=== PATIENT | female | born 1980 | race Caucasian/White ===

== ENCOUNTER 2020-04-08 10:16 | Emergency (ER) | payer BC ==
[2020-04-08] MEDS ORDERED: Amoxicillin/Clavulanate K 875-125 MG Tab PO ONE (10:17)
[2020-04-08] MEDS ORDERED: Ondansetron 4 MG Tab.DIS PO ONE ×2 (10:17→10:48)
[2020-04-08] MEDS ORDERED: Take Home: Ondansetron 4 MG Tab.DIS, 2 Tab Pack PO ONE (10:48)
[2020-04-08] MEDS ORDERED: Take Home: Amoxicillin/Clavulanate K 875-125 MG Tab, 2 Tab Pack PO ONE (10:48)
--- NOTE | 2020-04-08 10:56 | EDM.PDOC ---
ED HPI GENERAL MEDICAL PROBLEM - General Chief Complaint: General Stated Complaint: ?covid Time Seen by Provider: 04/08/20 10:47 Source of Information: Reports: Patient History Limitations: Reports: No Limitations - History of Present Illness INITIAL COMMENTS - FREE TEXT/NARRATIVE: This patient is a 40 year old female that presents to the ER. Patient reports that for about 1 week having facial pain and pressure. She reports also a headache, nausea, and vomiting a couple of times, diarrhea. Patient reports that she has a history of sinus infections. She reports this feels like a sinus infection, but came on a little faster than her past infections. Onset Date: 04/01/20 Duration: Week(s): (1) Location: Reports: Head, Face Quality: Reports: Pressure Severity: Moderate Improves with: Reports: None Worsens with: Reports: None Associated Symptoms: Reports: Headaches, Nausea/Vomiting. Denies: Confusion, Chest Pain, Cough, cough w sputum, Diaphoresis, Fever/Chills, Loss of Appetite, Malaise, Rash, Seizure, Shortness of Breath, Syncope, Weakness headache Pain Score (Numeric/FACES): 8 - Related Data Allergies Allergy/AdvReac Type Severity Reaction Status Date / Time Sulfa (Sulfonamide Allergy Anaphylactic Verified 04/08/20 10:33 Antibiotics) Shock Home Meds: Home Meds Amoxicillin/Clavulanate K [Augmentin 875-125 MG] 1 tab PO BID #18 tablet 04/08/20 [Rx] FLUoxetine [PROzac] 40 mg PO DAILY 04/08/20 [History] Ondansetron [Zofran ODT] 4 mg PO Q6H PRN #12 tab.dis 04/08/20 [Rx] methylPREDNISolone [Medrol Dose Pack] 4 mg PO ASDIRECTED #1 dospk 04/08/20 [Rx] Past Medical History - Past Surgical History Other HEENT Surgeries/Procedures: pt reports hx sinus infections Social & Family History - Family History Family Medical History: Noncontributory - Tobacco Use Tobacco Use Status *Q: Never Tobacco User Second Hand Smoke Exposure: No - Caffeine Use Caffeine Use: Reports: None - Recreational Drug Use Recreational Drug Use: No ED ROS GENERAL - Review of Systems Review Of Systems: See Below Constitutional: Reports: No Symptoms. Denies: Fever HEENT: Reports: Sinus Problem. Denies: Dental Pain, Ear Discharge, Ear Pain, Eye Discharge, Eye Pain, Hearing Loss, Nosebleed, Nose Pain, Rhinitis, Throat Pain, Throat Swelling, Vertigo, Vision Change Respiratory: Reports: No Symptoms. Denies: Shortness of Breath, Cough, Sputum Cardiovascular: Reports: No Symptoms. Denies: Chest Pain, Dyspnea on Exertion, Edema, Lightheadedness, Palpitations, Syncope Endocrine: Reports: No Symptoms GI/Abdominal: Reports: Diarrhea, Nausea, Vomiting. Denies: Abdominal Pain : Reports: No Symptoms Musculoskeletal: Reports: No Symptoms Skin: Reports: No Symptoms Neurological: Reports: Headache. Denies: Confusion, Dizziness, Numbness, Seizure, Syncope, Tingling, Trouble Speaking, Weakness, Change in Speech, Gait Disturbance Psychiatric: Reports: No Symptoms Hematologic/Lymphatic: Reports: No Symptoms Immunologic: Reports: No Symptoms ED EXAM, GENERAL - Physical Exam Exam: See Below Exam Limited By: No Limitations General Appearance: Alert, WD/WN, No Apparent Distress Eye Exam: Bilateral Eye: Normal Inspection, PERRL Ears: Normal External Exam, Normal Canal, Hearing Grossly Normal, Normal TMs Ear Exam: Bilateral Ear: Auricle Normal, Canal Normal, TM normal Nose: Normal Inspection, Normal Mucosa, No Blood Throat/Mouth: Normal Inspection, Normal Lips, Normal Teeth, Normal Gums, Normal Oropharynx, Normal Voice, No Airway Compromise Head: Atraumatic, Normocephalic, Sinus Tenderness (frontal and maxillary sinuses bilateral), Other (failed light illumination frontal and maxillary bilateral). No: Facial Swelling Neck: Normal Inspection, Supple, Non-Tender, Full Range of Motion Respiratory/Chest: No Respiratory Distress, Lungs Clear, Normal Breath Sounds, No Accessory Muscle Use, Chest Non-Tender Cardiovascular: Normal Peripheral Pulses, Regular Rate, Rhythm, No Edema, No Gallop, No JVD, No Murmur, No Rub Peripheral Pulses: 2+: Radial (L), Radial (R), Posterior Tibial (L), Posterior Tibial (R) GI/Abdominal: Normal Bowel Sounds, Soft, Non-Tender, No Distention. No: Guarding, Rigid, Rebound, Tender Back Exam: Normal Inspection, Full Range of Motion Extremities: Normal Inspection, Normal Range of Motion, Non-Tender, No Pedal Edema, Normal Capillary Refill Neurological: Alert, Oriented, Normal Cognition, Normal Gait, No Motor/Sensory Deficits Psychiatric: Normal Affect, Normal Mood Skin Exam: Warm, Dry, Intact, Normal Color, No Rash Lymphatic: No Adenopathy Course - Vital Signs Last Recorded V/S: Last Vital Signs Temp 98.9 F 04/08/20 10:17 Pulse 91 04/08/20 10:17 Resp 18 04/08/20 10:17 BP Pulse Ox 100 04/08/20 10:17 - Orders/Labs/Meds Orders: Active Orders 24 hr Category Date Time Status CMP [COMPREHENSIVE METABOLIC PN,CMP] [CHEM] Stat Lab 04/08/20 10:55 Received Labs: Laboratory Tests 04/08/20 04/08/20 Range/Units 09:50 10:55 WBC 8.5 (5.0-10.0) 10^3/uL RBC 4.38 (4.00-5.50) 10^6/uL Hgb 13.1 (12.0-16.0) g/dL Hct 39.0 (37.0-47.0) % MCV 89.0 (82.0-94.0) fL MCH 29.9 (27.0-32.0) pg MCHC 33.6 (33.0-38.0) g/dL RDW Coeff of Kierra 13.3 (11.0-15.0) % Plt Count 356 (150-400) 10^3/uL Neut % (Auto) 72.1 (35-85) % Lymph % (Auto) 18.5 (10-55) % Beckham % (Auto) 7.2 (0-16) % Eos % (Auto) 2.0 (0-5) % Baso % (Auto) 0.2 (0-3) % Neut # (Auto) 6.11 (1.80-7.00) 10^3/uL Lymph # (Auto) 1.57 (1.00-4.80) 10^3/uL Beckham # (Auto) 0.61 (0.00-0.80) 10^3/uL Eos # (Auto) 0.17 (0.00-0.45) 10^3/uL Baso # (Auto) 0.02 10^3/uL SARS CoV-2 RNA Rapid JULIAN Negative (NEGATIVE) Meds: Medications Discontinued Medications Generic Name Dose Route Start Last Admin Trade Name Freq PRN Reason Stop Dose Admin Amoxicillin/Clavulanate Potassium 1 packet 11/01/20 10:48 Take Home: Amox/Clavulanate 875-12, 2 Tab Pac PO 04/08/20 10:49 ONETIME ONE Ondansetron HCl 4 mg 04/08/20 10:48 Zofran Odt PO 04/08/20 10:49 ONETIME ONE Ondansetron HCl 2 packet 04/08/20 10:48 Take Home: Ondansetron Odt 4 Mg, 2 Tab Pack PO 04/08/20 10:49 ONETIME ONE Departure - Departure Time of Disposition: 11:12 Disposition: Home, Self-Care 01 Condition: Fair Clinical Impression: Acute sinusitis Qualifiers: Sinusitis location: maxillary Recurrence: recurrent Qualified Code(s): J01.01 - Acute recurrent maxillary sinusitis - Discharge Information *PRESCRIPTION DRUG MONITORING PROGRAM REVIEWED*: Not Applicable *COPY OF PRESCRIPTION DRUG MONITORING REPORT IN PATIENT EMILE: Not Applicable Prescriptions: Amoxicillin/Clavulanate K [Augmentin 875-125 MG] 1 tab PO BID #18 tablet methylPREDNISolone [Medrol Dose Pack] 4 mg PO ASDIRECTED #1 dospk Ondansetron [Zofran ODT] 4 mg PO Q6H PRN #12 tab.dis PRN Reason: Nausea/Vomiting Instructions: Sinusitis, Adult, [id number], How to Perform a Sinus Rinse, [id number] Forms: ED Department Discharge Additional Instructions: Followup with your primary care provider Return to the ER for worsening of condition or any emergent concerns Increase fluid intake May do saline rinses to sinuses at home: [place] Over the counter nasal spray such as Nasocort or Flonase Over the counter medications as needed Tylenol or Motrin as needed for pain or fever Augmentin 875mg 1 pill twice a day for 10 days #2 take home #18 pharmacy Medrol Dose Pack as directed #1 sent to pharmacy Zofran 4mg 1 pill every 6 hours under the tongue as needed for nausea or vomiting #4 take home #12 pharmacy Sepsis Event Note (ED) - Evaluation Sepsis Screening Result: No Definite Risk - Focused Exam Vital Signs: Vital Signs Temp Pulse Resp Pulse Ox 04/08/20 10:17 98.9 F 91 18 100 - My Orders Last 24 Hours: My Active Orders 04/08/20 10:55 CMP [COMPREHENSIVE METABOLIC PN,CMP] [CHEM] Stat - Assessment/Plan Last 24 Hours: My Active Orders 04/08/20 10:55 CMP [COMPREHENSIVE METABOLIC PN,CMP] [CHEM] Stat Plan: PLEASE SEE RN NOTE FOR PFSH
[2020-04-08 11:18] LABS: CHLORIDE,CL 102 mEq/L (98-106); SODIUM,NA 139 mEq/L (136-145)
== END 2020-04-08 11:47 | disposition home or self-care (01) ==
LOC: CC.ED 10:16
DX: J01.01 Acute recurrent maxillary sinusitis (principal); Z20.828 Contact with and (suspected) exposure to other viral communicable diseases; Z88.2 Allergy status to sulfonamides
CPT/HCPCS: 36415; 80053; 85025; 87804; 99284; A9270-GY; U0002

== ENCOUNTER 2020-07-27 18:30 | Emergency (ER) | payer BC ==
[2020-07-27] MEDS ORDERED: Ibuprofen 200 MG Tab PO ONE (19:32)
[2020-07-27] MEDS ORDERED: cefTRIAXone 1 GM Vial IM ONE (19:40)
--- NOTE | 2020-07-27 19:44 | EDM.PDOC ---
ED HPI GENERAL MEDICAL PROBLEM - General Chief Complaint: General Stated Complaint: weak,fever,bodyaches,s/t,sinus Time Seen by Provider: 07/27/20 19:30 Source of Information: Reports: Patient History Limitations: Reports: No Limitations - History of Present Illness INITIAL COMMENTS - FREE TEXT/NARRATIVE: Tatyana is a 40 year old female who presents to ER with a 5 day history of sinus congestion, fatigue and a sore throat. States her throat has gotten worse over the last 2 days. Started feeling hot and cold today, fever on presentation here. Does run a day care. Unaware of any cases of strep, influenza or covid there. She admits to difficulty with swallowing. Did take a "couple days of prednisone earlier in the week and that did help with the sinus pressure to an extent". Onset: Gradual Duration: Day(s):, Getting Worse Location: Reports: Head Quality: Reports: Ache, Throbbing Severity: Severe Associated Symptoms: Reports: Fever/Chills. Denies: Confusion, Chest Pain, Cough, Loss of Appetite, Nausea/Vomiting, Shortness of Breath - Related Data Allergies Allergy/AdvReac Type Severity Reaction Status Date / Time Sulfa (Sulfonamide Allergy Anaphylactic Verified 07/27/20 19:53 Antibiotics) Shock Home Meds: Home Meds Amoxicillin/Clavulanate K [Augmentin 875-125 MG] 1 tab PO BID #18 tablet 04/08/20 [Rx] FLUoxetine [PROzac] 40 mg PO DAILY 04/08/20 [History] Ondansetron [Zofran ODT] 4 mg PO Q6H PRN #12 tab.dis 04/08/20 [Rx] methylPREDNISolone [Medrol Dose Pack] 4 mg PO ASDIRECTED #1 dospk 04/08/20 [Rx] Past Medical History - Past Surgical History Other HEENT Surgeries/Procedures: pt reports hx sinus infections Social & Family History - Family History Family Medical History: No Pertinent Family History - Caffeine Use Caffeine Use: Reports: None ED ROS GENERAL - Review of Systems Review Of Systems: See Below Constitutional: Reports: Fever, Chills, Malaise, Weakness, Fatigue. Denies: Decreased Appetite HEENT: Reports: Rhinitis, Sinus Problem, Throat Pain. Denies: Ear Pain Respiratory: Reports: Cough. Denies: Shortness of Breath Cardiovascular: Denies: Chest Pain, Edema, Lightheadedness Endocrine: Reports: Fatigue GI/Abdominal: Denies: Abdominal Pain, Constipation, Diarrhea, Nausea, Vomiting : Reports: No Symptoms Musculoskeletal: Reports: No Symptoms Skin: Reports: No Symptoms Neurological: Reports: No Symptoms Psychiatric: Reports: No Symptoms ED EXAM, GENERAL - Physical Exam Exam: See Below Exam Limited By: No Limitations General Appearance: Alert, WD/WN, No Apparent Distress Ears: Normal External Exam, Normal TMs Nose: Normal Inspection, Other (nasal mucosa is red, edematous. Thick purulent drainage noted in nares. Bialteral maxillary sinus pressure) Throat/Mouth: Normal Inspection, Normal Oropharynx Head: Normocephalic, Facial Tenderness Neck: Normal Inspection, Supple, Non-Tender Respiratory/Chest: No Respiratory Distress, Lungs Clear, Normal Breath Sounds Cardiovascular: Regular Rate, Rhythm GI/Abdominal: Normal Bowel Sounds, Soft, Non-Tender Extremities: Normal Inspection, No Pedal Edema Neurological: Alert, Oriented Skin Exam: Warm, Dry Course - Vital Signs Last Recorded V/S: Last Vital Signs Temp 101 F H 07/27/20 19:37 Pulse Resp BP Pulse Ox - Orders/Labs/Meds Labs: Laboratory Tests 07/27/20 Range/Units 18:41 SARS CoV-2 RNA Rapid JULIAN Negative (NEGATIVE) Meds: Medications Discontinued Medications Generic Name Dose Route Start Last Admin Trade Name Travis PRN Reason Stop Dose Admin Ceftriaxone Sodium 1 gm 07/27/20 19:40 07/27/20 19:56 Rocephin IM 07/27/20 19:41 1 gm ONETIME ONE Administration Ibuprofen 600 mg 07/27/20 19:32 07/27/20 19:37 Motrin PO 07/27/20 19:33 600 mg ONETIME ONE Administration Lidocaine HCl 5 ml 07/27/20 19:41 07/27/20 19:56 Xylocaine-Mpf 1% INJECT 07/27/20 19:42 5 ml ONETIME ONE Administration Departure - Departure Time of Disposition: 19:42 Disposition: Home, Self-Care 01 Condition: Good Clinical Impression: Tonsillitis Acute sinusitis Qualifiers: Sinusitis location: maxillary Recurrence: recurrent Qualified Code(s): J01.01 - Acute recurrent maxillary sinusitis - Discharge Information *PRESCRIPTION DRUG MONITORING PROGRAM REVIEWED*: No *COPY OF PRESCRIPTION DRUG MONITORING REPORT IN PATIENT EMILE: No Instructions: Tonsillitis, [id number], Sinusitis, Adult, [id number] Forms: ED Department Discharge Additional Instructions: 1. Push fluids 2. Alternate tylenol with ibuprofen for fever or discomfort 3. Amoxicillin 875 mg twice a day for 10 days 4. Follow up or call if feel sinus pressure is increasing and need for prednisone 5. Follow up for any persisting concerns. Sepsis Event Note (ED) - Focused Exam Vital Signs: Vital Signs Temp 07/27/20 19:37 101 F H
== END 2020-07-27 20:15 | disposition home or self-care (01) ==
LOC: CC.ED 18:30
DX: J01.01 Acute recurrent maxillary sinusitis (principal); J03.90 Acute tonsillitis, unspecified; Z20.822 Contact with and (suspected) exposure to COVID-19; Z88.2 Allergy status to sulfonamides; Z79.899 Other long term (current) drug therapy
CPT/HCPCS: 96372; 99283; A9270-GY; J0696; U0002

== ENCOUNTER 2021-02-17 22:36 | Emergency (ER) | payer BC ==
--- NOTE | 2021-02-17 23:09 | EDM.PDOC ---
ED HPI GENERAL MEDICAL PROBLEM - General Chief Complaint: Lower Extremity Injury/Pain Stated Complaint: ankle pain Time Seen by Provider: 02/17/21 23:00 Source of Information: Reports: Patient History Limitations: Reports: No Limitations - History of Present Illness INITIAL COMMENTS - FREE TEXT/NARRATIVE: States that she stepped on the vacuum hose and tripped and fell. She is complaining of ankle pain on the lateral aspect of the ankle. Some swelling noted. She has been ambulating on it with some discomfort. Good sensation noted distally. Onset: Sudden Location: Reports: Lower Extremity, Left Quality: Reports: Throbbing Right Ankle Pain Score (Numeric/FACES): 6 - Related Data Allergies Allergy/AdvReac Type Severity Reaction Status Date / Time cefuroxime [From Ceftin] Allergy Hives Verified 02/17/21 22:39 Sulfa (Sulfonamide Allergy Anaphylactic Verified 07/27/20 19:53 Antibiotics) Shock Home Meds: Home Meds FLUoxetine [PROzac] 40 mg PO DAILY 04/08/20 [History] Ondansetron [Zofran ODT] 4 mg PO Q6H PRN #12 tab.dis 04/08/20 [Rx] Past Medical History - Past Surgical History Other HEENT Surgeries/Procedures: pt reports hx sinus infections Social & Family History - Family History Family Medical History: No Pertinent Family History - Tobacco Use Tobacco Use Status *Q: Never Tobacco User - Caffeine Use Caffeine Use: Reports: Coffee - Recreational Drug Use Recreational Drug Use: No Review of Systems - Review of Systems Review Of Systems: See Below Musculoskeletal: Reports: Joint Pain (left ankle) ED EXAM, GENERAL - Physical Exam Exam: See Below Exam Limited By: No Limitations General Appearance: Alert, WD/WN, Mild Distress Extremities: Normal Inspection, Normal Capillary Refill, Joint Swelling (to the left ankle. Some swelling noted to the ankle. Good sensation noted distally.) Neurological: Alert, Oriented Psychiatric: Normal Affect Skin Exam: Warm, Dry, Intact Course - Vital Signs Last Recorded V/S: Last Vital Signs Temp 98.8 F 02/17/21 22:36 Pulse 75 02/17/21 22:36 Resp 18 02/17/21 22:36 BP 149/83 H 02/17/21 22:36 Pulse Ox 100 02/17/21 22:36 - Orders/Labs/Meds Orders: Active Orders 24 hr Category Date Time Status Ankle Min 3V Lt [CR] Stat Exams 02/17/21 22:40 Taken Departure - Departure Time of Disposition: 23:06 Disposition: Home, Self-Care 01 Condition: Good Clinical Impression: Sprained ankle Qualifiers: Encounter type: initial encounter Involved ligament of ankle: unspecified ligament Laterality: left Qualified Code(s): S93.402A - Sprain of unspecified ligament of left ankle, initial encounter - Discharge Information *PRESCRIPTION DRUG MONITORING PROGRAM REVIEWED*: Not Applicable *COPY OF PRESCRIPTION DRUG MONITORING REPORT IN PATIENT EMILE: Not Applicable Instructions: Ankle Sprain Referrals: PCP,None [Primary Care Provider] - Forms: ED Department Discharge Additional Instructions: air splint for comfort as needed tylenol or advil as needed for comfort ICE for swelling and comfort Elevate for swelling recheck if not improving. Sepsis Event Note (ED) - Evaluation Sepsis Screening Result: No Definite Risk - Focused Exam Vital Signs: Vital Signs Temp Pulse Resp BP Pulse Ox 02/17/21 22:36 98.8 F 75 18 149/83 H 100 - Problem List & Annotations (1) Sprained ankle SNOMED Code(s): 30920748 Code(s): S93.409A - SPRAIN OF UNSP LIGAMENT OF UNSPECIFIED ANKLE, INIT ENCNTR Status: Acute Priority: High Current Visit: Yes Qualifiers: Encounter type: initial encounter Involved ligament of ankle: unspecified ligament Laterality: left Qualified Code(s): S93.402A - Sprain of unspecified ligament of left ankle, initial encounter - Problem List Review Problem List Initiated/Reviewed/Updated: Yes - My Orders Last 24 Hours: My Active Orders 02/17/21 22:40 Ankle Min 3V Lt [CR] Stat - Assessment/Plan Last 24 Hours: My Active Orders 02/17/21 22:40 Ankle Min 3V Lt [CR] Stat
== END 2021-02-17 23:24 | disposition home or self-care (01) ==
LOC: CC.ED 22:36
DX: S93.402A Sprain of unspecified ligament of left ankle, initial encounter (principal); Z88.2 Allergy status to sulfonamides; Z88.1 Allergy status to other antibiotic agents; W01.0XXA Fall on same level from slipping, tripping and stumbling without subsequent striking against object, initial encounter
CPT/HCPCS: 73610-LT; 99283-25

== ENCOUNTER 2024-11-14 20:47 | Emergency (ER) | payer OTHER ==
[2024-11-14] MEDS: Sodium Chloride 0.9% 1,000 ML IV ONE (21:16)
[2024-11-14 21:25] LABS: APPEARANCE,URINE CLEAR (CLEAR); BILIRUBIN,URINE NEGATIVE (NEGATIVE); COLOR,URINE YELLOW (YELLOW); GLUCOSE,URINE NEGATIVE (NEGATIVE); KETONES,URINE NEGATIVE (NEGATIVE); LEUKOCYTE ESTERASE,URINE NEGATIVE (NEGATIVE); NITRITE,URINE NEGATIVE (NEGATIVE); OCCULT BLOOD,URINE NEGATIVE (NEGATIVE); PROTEIN,URINE NEGATIVE (NEGATIVE); UROBILINOGEN,URINE 0.2 EU/dL (0.2-1.0)
[2024-11-14 21:25] LABS: BASOPHILS ABSOLUTE AUTO 0.04 10^3/uL (0.00-0.50); BASOPHILS PERCENT AUTO 0.3 % (0-1); EOSINOPHILS ABSOLUTE AUTO 0.23 10^3/uL (0.00-1.50); EOSINOPHILS PERCENT AUTO 1.9 % (0-6); HEMATOCRIT 35.2 % (37.0-47.0); HEMOGLOBIN 11.8 g/dL (12.0-16.0); IMMATURE GRAN ABSOLUTE AUTO 0.03 10^3/uL (0.00-0.49); IMMATURE GRAN PERCENT AUTO 0.3 % (0.0-4.9); LYMPHOCYTES ABSOLUTE AUTO 1.83 10^3/uL (0.60-5.00); LYMPHOCYTES PERCENT AUTO 15.4 % (24-44); MEAN CORPUSCULAR HEMOGLOBIN 30.2 pg (27.0-32.0); MEAN CORPUSCULAR HGB CONC 33.5 g/dL (32.0-36.0); MONOCYTES ABSOLUTE AUTO 0.66 10^3/uL (0.00-1.50); MONOCYTES PERCENT AUTO 5.6 % (0-10); NEUTROPHILS ABSOLUTE AUTO 9.08 x10^3/uL (1.80-8.00); NEUTROPHILS PERCENT AUTO 76.5 % (41-71); PLATELET COUNT,PLT 257 10^3/uL (150-400); RED BLOOD CELL COUNT 3.91 x10^6/uL (4.00-5.50); WHITE BLOOD CELL COUNT,WBC 11.9 10^3/uL (4.0-11.0)
[2024-11-14 21:40] LABS: ALANINE AMINOTRANSFERASE,ALT 22 U/L (12-78); ALBUMIN 2.9 g/dL (3.4-5.0); ALKALINE PHOSPHATASE 64 U/L (46-116); ASPARTATE AMNIOTRANSFERASE,AST 14 U/L (15-37); BILIRUBIN TOTAL 0.1 mg/dL (0.0-1.0); BLOOD UREA NITROGEN,BUN 9 mg/dL (7-18); CALCIUM 9.3 mg/dL (8.4-10.1); CARBON DIOXIDE,CO2 24 mmol/L (21-32); CHLORIDE,CL 100 mEq/L (98-106); CREATININE 0.7 mg/dL (0.6-1.0); ESTIMATED GFR 110 mL/min (>=60); GLUCOSE RANDOM 97 mg/dL (75-99); POTASSIUM,K 3.7 mEq/L (3.5-5.0); PROTEIN TOTAL,TP 7.1 g/dL (6.4-8.2); SODIUM,NA 136 mEq/L (136-145)
[2024-11-15 00:22] VITALS: PULSE 101
[2024-11-15 00:23] VITALS: BP 125/74
== END 2024-11-14 22:20 | disposition home or self-care (01) ==
LOC: CC.ED 20:47
DX: O99.282 Endocrine, nutritional and metabolic diseases complicating pregnancy, second trimester (principal); E86.0 Dehydration; O99.891 Other specified diseases and conditions complicating pregnancy; R03.0 Elevated blood-pressure reading, without diagnosis of hypertension; Z88.2 Allergy status to sulfonamides; Z88.8 Allergy status to other drugs, medicaments and biological substances; Z79.899 Other long term (current) drug therapy; Z3A.18 18 weeks gestation of pregnancy
CPT/HCPCS: 36415; 80053; 81003; 85025; 96360; 99284; 99284-25; J7030